=== PATIENT | female | born 1935 ===

== ENCOUNTER 2017-08-06 12:35 | Emergency (ER) | payer OTHER ==
[~2017-08-06] VITALS: Ht 170.2 cm; Wt 158.8 kg
[~2017-08-06 12:35] MED LIST: ARICEPT10 MG; CELEBREX100 MG PO; CRESTOR5 MG; CYMBALTA60 MG; CYTOMEL5 MCG; LEVOXYL50 MCG; PLAVIX75 MG; ULTRACET PO; VICTOZA 2-0.6 MG/0.1
== END 2017-08-06 21:46 | disposition home or self-care (01) ==
LOC: ER 12:35
DX: B34.9 Viral infection, unspecified (principal); J11.1 Influenza due to unidentified influenza virus with other respiratory manifestations; N39.0 Urinary tract infection, site not specified

== ENCOUNTER 2018-02-10 16:39 | Emergency (ER) | payer OTHER ==
[~2018-02-10] VITALS: Ht 152.4 cm; Wt 158.8 kg
== END 2018-02-11 10:45 | disposition home or self-care (01) ==
LOC: ER 16:39
DX: K29.60 Other gastritis without bleeding (principal)

== ENCOUNTER 2018-04-22 18:01 | Emergency (ER) | payer OTHER ==
[~2018-04-22] VITALS: Ht 162.6 cm; Wt 154.2 kg
[2018-04-22] MEDS ORDERED: SYNTHROID112 MCG (18:17)
[2018-04-22] MEDS ORDERED: TOPROL XL50 M1 (18:17)
[2018-04-22] MEDS ORDERED: MEMANTINE HCL10 MG (18:17)
[2018-04-22] MEDS ORDERED: ASPIR 8181 MG (18:17)
[2018-04-22] MEDS ORDERED: CYMBALTA20 MG (18:18)
[2018-04-23] MEDS ORDERED: INTESTINEX680 M1 PO (00:51)
[2018-04-23] MEDS ORDERED: BACTRIM DS TAB1 EACH PO (00:51)
[2018-04-23] MEDS ORDERED: PEPCID AC20 MG PO (00:51)
== END 2018-04-23 09:28 | disposition home or self-care (01) ==
LOC: ER 18:01
DX: K52.89 Other specified noninfective gastroenteritis and colitis (principal); K29.60 Other gastritis without bleeding; N30.81 Other cystitis with hematuria; R82.79 Other abnormal findings on microbiological examination of urine